=== PATIENT | male | born 1985 | race American Indian/Alaskan Native ===

== ENCOUNTER 2018-12-19 12:51 | Outpatient (CLI) | payer OTHER ==
--- NOTE | 2018-12-19 14:19 | Cat Scan Report ---
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 HX: COOKER HELPER SHUNT. TECHNIQUE: Axial imaging performed from the skull apex through the skull base without the use of con trast. All CT scans at this location are performed using CT dose reduction for ALARA by means of aut omated exposure control. COMPARISON: None FINDINGS: Parenchyma: No acute intracranial hemorrhage or parenchymal abnormality. Ventricles: Mild asymmetric enlargement of the right lateral ventricle with a COOKER HELPER shunt tip in the oc cipital horn. The ventricles are otherwise normal. Soft tissues: Soft tissues including the orbits appear normal. Bones: No acute osseous abnormality. Sinuses: Sinuses and mastoid air cells are clear. IMPRESSION: No acute abnormality. Signer Name: Evangelist Flynn MD Signed: 12/19/2018 2:14 PM Workstation Name: [id number]
== END 2018-12-19 12:52 | disposition home or self-care (01) ==
LOC: CT 12:51
PROVIDERS: ATTEND Internal Medicine
DX: R51 Headache (principal)
CPT/HCPCS: 70450

== ENCOUNTER 2020-01-04 08:57 | Outpatient (CLI) | payer OTHER | END 2020-01-04 08:58 | disposition home or self-care (01) | LOC: EEG 08:57 | PROVIDERS: ATTEND Psychiatry & Neurology Psychiatry | DX: R56.9 Unspecified convulsions (principal); R42 Dizziness and giddiness | CPT/HCPCS: 95819 ==